=== PATIENT | female | born 1995 ===

== ENCOUNTER 2024-06-13 21:34 | Emergency (ER) | payer OTHER ==
--- OUTSIDE RECORDS SUMMARY | 2024-06-13 21:38 | XMS REPORT | Continuity of Care Document ---
Author Name Unknown Address [address] [facility] [address] [place] [address] [facility] thconnect Address [address] [facility] [address] [place] [address] Care Team Providers Care Satin Finisher Name Role Phone Susan Portillo MD Primary Care Physician [phone] Doctor Unassigned, [place] Attending Clinician U CLAYTON Beltran Attending Clinician Unavailable [email or web address]_Kasheilaa_S Attending Clinician Sourav Roman MD Attending Clinician [phone] RADIOLOGY Attending Clinician Unavailable Doctor Unassigned, [place] Attending Clinician U SOURAV Long Attending Clinician Unavailable BETO_GCBZW_Kasheilaa_S Admitting Clinician UnavailSOURAV Burkett Admitting Clinician Unavailable Payers Payer Name Policy Type Policy Number Effective Date Expirati on Date Source [facility] [id number] 2019 00:00:00 Problems Condition Name Condition Details Condition Category Status Onset Date Resolution Date Last Treatment Date Treating Clinician Comments Source PCOS (polycysti c ovarian syndrome) PCOS (polycysti c ovarian syndrome) Disease Active 06-16 00:00: 00 [facility] Family planning, IUD (intrauter ine device) check/rein sertion/re moval Family planning, IUD (intrauter ine device) check/rein sertion/re moval Disease Active 2018-05 00:00: 00 [facility] Presence of of 52 mg levonorges trel-relea sing intrauteri ne device (IUD) Presence of of 52 mg levonorges trel-relea sing intrauteri ne device (IUD) Disease Active 2018-05 00:00: 00 [facility] Hyperplasi a of endometriu m determined by biopsy Hyperplasi a of endometriu m determined by biopsy Disease Active 2018-05 00:00: 00 [facility] 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 Disease Active 11-22 00:00: 00 [facility] 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 [facility] Low back pain Low back pain Disease Active [facility] 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 [facility] Allergies, Adverse Reactions, Alerts Allergy Name Allergy Type Status Severity Reaction(s) Onset Date Inactive Date Treating Clinician Comments Source NO KNOWN ALLERGIE S Drug Class Active [facility] Social History Social Habit Start Date Stop Date Quantity Comments Source Sexual orientation U [facility] History of Social function 2019-12-31 00:00:00 2019-12-31 00:00:00 [facility] Alcoholic beverage intake 2019-06-16 00:00:00 2019-06-16 00:00:00 Current non-drinker of alcohol (finding) [facility] Alcohol intake 2019-06-16 00:00:00 2019-06-16 00:00:00 Current non-drinker of alcohol (finding) [facility] Tobacco use and exposure 2017-11-22 00:00:00 2017-11-22 00:00:00 Smokeless tobacco non-user [facility] Sex assigned at 1995 00:00:00 1995 00:00:00 [facility] Smoking Status Start Date Stop Date Source Never smoked tobacco [facility] Medications Ordered Medication Name Filled Medication Name Start Date Stop Date Current Medication? Ordering Clinician Indication Dosage Frequency Signature (SIG) Comments Components Source clotrimazol e 1 % vaginal cream - 00:00: 00 Yes 1% Issac Ortiz cefdinir 300 mg capsule 2023-05- 00:00: 00 Yes 1mg Issac Ortiz TAKE 1 TABLET DAILY DIRECTED. 7-10 00:00: 00 09-01 00:00 :00 No 500 Issac Ortiz TAKE 1 TABLET DAILY. 3-30 00:00: 00 09-01 00:00 :00 No 25 Issac Ortiz TAKE 1 TABLET DAILY. 2021-05 2-20 00:00: 00 09-01 00:00 :00 No 25 Issac Ortiz TAKE 1 TABLET BY MOUTH EVERY 12 HOURS 2021-05 1-25 00:00: 00 09-01 00:00 :00 No Issac Ortiz TAKE 1 TABLET DAILY. 9-21 00:00: 00 09-01 00:00 :00 No Issac Ortiz Dose Unknown 9-19 00:00: 00 09-01 00:00 :00 No Issac Ortiz Dose Unknown 2-10 00:00: 00 Yes Issac Ortiz DM/p-ephed/ acetaminoph /doxylam (NYQUIL D ORAL) 2018-05 19:38: 48 Yes Take by mouth daily. [facility] DM/p-ephed/ acetaminoph /doxylam (NYQUIL D ORAL) 2018-05 13:38: 48 Yes Take by mouth daily. [facility] Immunizations Ordered Immunization Name Filled Immunization Name Date Status Comments Source HPV, quadrivalent HPV, quadrivalent 2021-07-06 00:00:00 Completed Issac Ortiz Influenza Virus Vaccine Quad .5 mL IM 6+ MO 2019-04-15 00:00:00 Completed [facility] Influenza Virus Vaccine Quad .5 mL IM 6+ MO 2019-04-15 00:00:00 Completed [facility] Influenza Virus Vaccine Quad .5 mL IM 6+ MO 2019-04-15 00:00:00 Completed [facility] Influenza Virus Vaccine Quad .5 mL IM 6+ MO (FLUZONE/FLULAVAL/F LUARIX) 2019-04-15 00:00:00 Completed [facility] Influenza Virus Vaccine Quad .5 mL IM 6+ MO (FLUZONE/FLULAVAL/F LUARIX) Unknown Completed [facility] Vital Signs Vital Name Observation Time Observation Value Comments Alba cristobal Systolic blood pressure 2019-06-16 19:01:00 131 mm[Hg] [facility] Diastolic blood pressure 2019-06-16 19:01:00 85 mm[Hg] [facility] Heart rate 2019-06-16 19:01:00 95 /min [facility] Body temperature 2019-06-16 19:01:00 36.83 Katalina [facility] Respiratory rate 2019-06-16 19:01:00 18 /min [facility] Body height 2019-06-16 19:01:00 160 cm [facility] Body weight 2019-06-16 19:01:00 76.386 kg [facility] BMI 2019-06-16 19:01:00 29.83 kg/m2 [facility] BP Systolic 2024-05-28 11:08:00 117 mm[Hg] Step hen F Angel BP Diastolic 2024-05-28 11:08:00 64 mm[Hg] Magdiel phen F Angel Weight Measured 2024-05-28 11:08:00 138.00 pounds Issac F Angel Height Measured 2024-05-28 11:08:00 63.00 inches Issac F Angel Body Temperature 2024-05-28 11:08:00 98.00 degrees Issac F Angel Heart Rate 2024-05-28 11:08:00 62.00 /min [place] en F Angel Respiratory Rate 2024-05-28 11:08:00 Issac F Angel BP Systolic 2024-05-18 08:12:00 132 mm[Hg] Step hen F Angel BP Diastolic 2024-05-18 08:12:00 82 mm[Hg] Magdiel phen F Angel Weight Measured 2024-05-18 08:12:00 136.40 pounds Issac F Angel Height Measured 2024-05-18 08:12:00 63.00 inches Issac F Angel Body Temperature 2024-05-18 08:12:00 98.40 degrees Issac F Angel Heart Rate 2024-05-18 08:12:00 97.00 /min Katius[place] en F Angel Respiratory Rate 2024-05-18 08:12:00 Issac F Angel BP Systolic 2024-05-05 17:48:00 134 mm[Hg] Step hen F Angel BP Diastolic 2024-05-05 17:48:00 88 mm[Hg] Magdiel phen F Angel Weight Measured 2024-05-05 17:48:00 137.40 pounds Issac F Angel Height Measured 2024-05-05 17:48:00 63.00 inches Issac F Angel Body Temperature 2024-05-05 17:48:00 97.70 degrees Issac F Angel Heart Rate 2024-05-05 17:48:00 82.00 /min [place] en F Angel Respiratory Rate 2024-05-05 17:48:00 Issac F Angel BP Systolic 2024-04-20 16:45:00 124 mm[Hg] Step hen F Angel BP Diastolic 2024-04-20 16:45:00 79 mm[Hg] Magdiel phen F Angel Weight Measured 2024-04-20 16:45:00 134.00 pounds Issac F Angel Height Measured 2024-04-20 16:45:00 63.00 inches Issac F Angel Body Temperature 2024-04-20 16:45:00 97.80 degrees Issac F Angel Heart Rate 2024-04-20 16:45:00 66.00 /min [place] en F Angel Respiratory Rate 2024-04-20 16:45:00 18.00 /min Issac F Angel BP Systolic 2023-08-21 08:40:00 119 mm[Hg] Step hen F Angel BP Diastolic 2023-08-21 08:40:00 73 mm[Hg] Magdiel phen F Angel Weight Measured 2023-08-21 08:40:00 136.20 pounds Issac F Angel Height Measured 2023-08-21 08:40:00 63.00 inches Issac F Angel Body Temperature 2023-08-21 08:40:00 98.20 degrees Issac F Angel Heart Rate 2023-08-21 08:40:00 60.00 /min [place] en F Angel Respiratory Rate 2023-08-21 08:40:00 19.00 /min Issac F Angel BP Systolic 2022-12-03 09:02:00 128 mm[Hg] Step hen F Angel BP Diastolic 2022-12-03 09:02:00 86 mm[Hg] Magdiel phen F Angel Weight Measured 2022-12-03 09:02:00 147.80 pounds Issac F Angel Height Measured 2022-12-03 09:02:00 63.00 inches Issac F Angel Body Temperature 2022-12-03 09:02:00 98.20 degrees Issac F Angel Heart Rate 2022-12-03 09:02:00 61.00 /min [place] en F Angel Respiratory Rate 2022-12-03 09:02:00 19.00 /min Issac F Angel BP Systolic 2022-11-28 17:15:00 126 mm[Hg] Step hen F Angel BP Diastolic 2022-11-28 17:15:00 79 mm[Hg] Magdiel phen F Angel Weight Measured 2022-11-28 17:15:00 149.00 pounds Issac F Angel Height Measured 2022-11-28 17:15:00 63.00 inches Issac F Angel Body Temperature 2022-11-28 17:15:00 98.00 degrees Issac F Angel Heart Rate 2022-11-28 17:15:00 86.00 /min Katiuska en F Angel Respiratory Rate 2022-11-28 17:15:00 Issac F Angel BP Systolic 2022-11-12 09:32:00 120 mm[Hg] Step hen F Angel BP Diastolic 2022-11-12 09:32:00 76 mm[Hg] Magdiel phen F Angel Weight Measured 2022-11-12 09:32:00 147.20 pounds Issac F Angel Height Measured 2022-11-12 09:32:00 63.00 inches Issac F Angel Body Temperature 2022-11-12 09:32:00 98.30 degrees Issac F Angel Heart Rate 2022-11-12 09:32:00 83.00 /min Katiuska en F Angel Respiratory Rate 2022-11-12 09:32:00 19.00 /min Issac F Angel BP Systolic 2022-11-05 10:02:00 124 mm[Hg] Step hen F Angel BP Diastolic 2022-11-05 10:02:00 74 mm[Hg] Magdiel phen F Angel Weight Measured 2022-11-05 10:02:00 148.00 pounds Issac F Angel Height Measured 2022-11-05 10:02:00 63.00 inches Issac F Angel Body Temperature 2022-11-05 10:02:00 98.30 degrees Issac F Angel Heart Rate 2022-11-05 10:02:00 85.00 /min [place] en F Angel Respiratory Rate 2022-11-05 10:02:00 19.00 /min Issac F Angel BP Systolic 2022-08-23 07:59:00 128 mm[Hg] Step hen F Angel BP Diastolic 2022-08-23 07:59:00 83 mm[Hg] Magdiel phen F Angel Weight Measured 2022-08-23 07:59:00 151.60 pounds Issac F Angel Height Measured 2022-08-23 07:59:00 63.00 inches Issac F Angel Body Temperature 2022-08-23 07:59:00 98.90 degrees Issac F Angel Heart Rate 2022-08-23 07:59:00 84.00 /min [place] en F Angel Respiratory Rate 2022-08-23 07:59:00 Issac F Angel BP Systolic 2022-04-17 09:05:00 116 mm[Hg] Step hen F Angel BP Diastolic 2022-04-17 09:05:00 72 mm[Hg] Magdiel phen F Angel Weight Measured 2022-04-17 09:05:00 152.20 pounds Issac F Angel Height Measured 2022-04-17 09:05:00 63.00 inches Issac F Angel Body Temperature 2022-04-17 09:05:00 98.50 degrees Issac F Angel Heart Rate 2022-04-17 09:05:00 66.00 /min [place] en F Angel Respiratory Rate 2022-04-17 09:05:00 17.00 /min Issac F Angel BP Systolic 2022-02-13 09:50:00 129 mm[Hg] Step hen F Angel BP Diastolic 2022-02-13 09:50:00 85 mm[Hg] Magdiel phen F Angel Weight Measured 2022-02-13 09:50:00 12.60 pounds Issac F Angel Height Measured 2022-02-13 09:50:00 63.00 inches Issac F Angel Body Temperature 2022-02-13 09:50:00 98.30 degrees Issac F Angel Heart Rate 2022-02-13 09:50:00 76.00 /min Katiuska Ortiz Respiratory Rate 2022-02-13 09:50:00 17.00 /min Issac Ortiz BP Systolic 2021-07-06 09:01:00 116 mm[Hg] Kenneth Ortiz BP Diastolic 2021-07-06 09:01:00 74 mm[Hg] Magdiel Ortiz Weight Measured 2021-07-06 09:01:00 164.60 pounds Issac Ortiz Height Measured 2021-07-06 09:01:00 63.00 inches Issac Ortiz Body Temperature 2021-07-06 09:01:00 99.00 degrees Issac Ortiz Heart Rate 2021-07-06 09:01:00 85.00 /min Katiuska Ortiz Respiratory Rate 2021-07-06 09:01:00 17.00 /min Issac Ortiz Encounters Start Date/Time End Date/Time Encounter Type Admission Type Attending [facility] Care Department Encounter ID Source 2024-05-28 11:05:49 2024-05-28 11:05:49 Outpatient SFA SFA [id number] Issac Ortiz 2024-05-28 00:00:00 2024-05-28 00:00:00 Outpatient Visit SFA [id number] Issac Ortiz 2024-05-25 09:52:16 2024-05-25 09:52:16 Outpatient SFA SFA [id number] Issac Ortiz 2024-05-18 08:05:32 2024-05-18 08:05:32 Outpatient SFA SFA [id number] Issac Ortiz 2024-05-18 00:00:00 2024-05-18 00:00:00 Outpatient Visit SFA [id number] Issac Ortiz 2024-05-14 11:28:59 2024-05-14 11:28:59 Outpatient SFA SFA [id number] Issac Ortiz 2024-05-06 09:54:52 2024-05-06 09:54:52 Outpatient SFA SFA [id number] Issac Ortiz 2024-05-05 17:38:53 2024-05-05 17:38:53 Outpatient SFA SFA [id number] Issac Ortiz 2024-05-05 00:00:00 2024-05-05 00:00:00 Outpatient Visit SFA [id number] Issac Ortiz 2024-04-30 10:32:28 2024-04-30 10:32:28 Outpatient SFA [facility] [id number] Issac Ortiz 2024-03-25 00:00:00 2024-04-25 18:19:51 Patient Secure Msg Doctor Unassigned, [place] Doctor Unassigned, [place] [facility] [id number] [facility] 2024-04-20 16:33:50 2024-04-20 16:33:50 Outpatient SFA [facility] [id number] Issac Ortiz 2024-04-20 00:00:00 2024-04-20 00:00:00 Outpatient Visit SFA [id number] Issac Ortiz 2024-04-15 08:05:33 2024-04-15 08:05:33 Outpatient SFA [facility] [id number] Issac Ortiz 2024-04-06 14:00:00 2024-04-06 14:00:00 Outpatient CLAYTON WASHINGTON [facility] [id number] [facility] 2023-08-21 08:32:22 2023-08-21 08:32:22 Outpatient SFA [facility] [id number] Issac Ortiz 2023-03-25 00:00:00 2023-03-25 00:00:00 Outpatient GC_GCBZW_Ka diyala_S [facility] [id number] [facility] 2023-03-24 00:00:00 2023-03-24 00:00:00 Outpatient GC_GCBZW_Ka diyala_S [facility] [id number] [facility] 2022-12-03 08:58:08 2022-12-03 08:58:08 Outpatient [facility] [id number] Issac Ortiz 2022-11-28 16:58:17 2022-11-28 16:58:17 Outpatient [facility] [id number] Issac Ortiz 2022-11-12 09:21:41 2022-11-12 09:21:41 Outpatient [facility] [id number] Issac Ortiz 2022-11-05 09:56:07 2022-11-05 09:56:07 Outpatient [facility] [id number] Issac Ortiz 2022-04-17 00:00:00 2022-04-17 00:00:00 Patient Secure Msg Sourav Vega [facility] [id number] [id number] [facility] 2020-09-29 00:00:00 2020-09-29 00:00:00 Outpatient R RADIOLOGY [facility] [id number] [facility] 2019-06-16 12:53:54 2019-06-16 13:23:54 Office Visit Sourav Vega [facility] [id number] [facility] 2019-06-05 00:00:00 2019-06-05 00:00:00 Patient Secure Msg Doctor Unassigned, [place] [facility] [id number] [facility] 2019-05-25 00:00:00 2019-05-25 00:00:00 Patient Secure Msg Doctor Unassigned, [place] [facility] [id number] [facility] 2019-04-28 08:59:55 2019-04-28 23:59:00 Outpatient SOURAV KINNEY [facility] [id number] [facility] Results Test Description Test Time Test Comments Results Result Co mments Source MICROSCOPIC URINALYSIS, REFLEX [id number] 00:00:00* Test Item Value Reference Range Interpretation Comme nts WHITE BLOOD CELLS (test code = 1513) 0-5 /HPF RED BLOOD CELLS (test code = 1514) 0-2 /HPF EPITHELIAL CELLS (test code = 14042) 11-15 /HPF BACTERIA (test code = 1515) 1+ CASTS, HYALINE (test code = 1517) TRACE Issac OrtizHCG, [id number] 06:52:31* Test Item Value Reference Range Interpretation Comme nts HCG, QUANTITATIVE (test code = 2506) 22127 MIU/ML SEE BELOW EXPEC GARETH VALUES FOR HCG GST.AGE UNITS RANGE GST. AGE UNITS RANGE3 WEEKS MIU/ML 6-71 10 WEEKS MIU/ML 46,509-186,9774 WEEKS MIU/ML 10-750 12 WEEKS MIU/ML 27,832-210,6125 WEEKS MIU/ML 217-7,138 14 WEEKS MIU/ML 13,950-62,5306 WEEKS MIU/ML 158-31,795 15 WEEKS MIU/ML 12,039-70,9717 WEEKS MIU/ML 3,697-163,563 16 WEEKS MIU/ML 9,040-56,4518 WEEKS MIU/ML 32,065-149,571 17 WEEKS MIU/ML 8,175-55,8689 WEEKS MIU/ML 63,803-151,410 18 WEEKS MIU/ML 8,099-58,176MALES and NON- FEMALES . . . . . . . . MIU/ML 5-7IXGE-TFRDBXRAYE FEMALES . . . . . . . . . . . . MIU/ML <=7 UNLESS OTHERWISE INDICATED, ALL TESTING PERFORMED AT [facility] [employer] [address] [place] [address] MANAGER SOCIAL MEDIA: ARNULFO SHEFFIELD M.D. CLIA NUMBER [id number] [place]. [id number] HCG, [id number] 00:00:00* Test Item Value Reference Range Interpretation Comme nts HCG, QUANTITATIVE (test code = 2506) 50985 MIU/ML Issac OrtizHCG, [id number] 00:00:00* Test Item Value Reference Range Interpretation Comme nts HCG, QUANTITATIVE (test code = 2506) 42956 MIU/ML Issac OrtizHCG, [id number] 08:51:44* Test Item Value Reference Range Interpretation Comme nts HCG, QUANTITATIVE (test code = 2506) 93500 MIU/ML SEE BELOW EXPEC GARETH VALUES FOR HCG GST.AGE UNITS RANGE GST. AGE UNITS RANGE3 WEEKS MIU/ML 6-71 10 WEEKS MIU/ML 46,509-186,9774 WEEKS MIU/ML 10-750 12 WEEKS MIU/ML 27,832-210,6125 WEEKS MIU/ML 217-7,138 14 WEEKS MIU/ML 13,950-62,5306 WEEKS MIU/ML 158-31,795 15 WEEKS MIU/ML 12,039-70,9717 WEEKS MIU/ML 3,697-163,563 16 WEEKS MIU/ML 9,040-56,4518 WEEKS MIU/ML 32,065-149,571 17 WEEKS MIU/ML 8,175-55,8689 WEEKS MIU/ML 63,803-151,410 18 WEEKS MIU/ML 8,099-58,176MALES and NON- FEMALES . . . . . . . . MIU/ML 7-0KWQL-PTWLOMDXOC FEMALES . . . . . . . . . . . . MIU/ML <=7 UNLESS OTHERWISE INDICATED, ALL TESTING PERFORMED AT [facility] [employer] [address] [place] [address] MANAGER SOCIAL MEDIA: ARNULFO SHEFFIELD M.D. CLIA NUMBER [id number] [place]. [id number] HCG, [id number] 00:00:00* Test Item Value Reference Range Interpretation Comme nts HCG, QUANTITATIVE (test code = 2506) 88563 MIU/ML Issac OrtizHCG, [id number] 00:00:00* Test Item Value Reference Range Interpretation Comme nts HCG, QUANTITATIVE (test code = 2506) 98980 MIU/ML Issac OrtizHCG, [id number] 00:00:00* Test Item Value Reference Range Interpretation Comme nts HCG, QUANTITATIVE (test code = 2506) 72864 MIU/ML Issac OrtizVARICELLA ZOSTER [id number] 00:00:00* Test Item Value Reference Range Interpretation Comme nts VARICELLA ZOSTER IgG (test c ode = 38242) 3.81 S/CO Issac OrtizVARICELLA ZOSTER [id number] 00:00:00* Test Item Value Reference Range Interpretation Comme nts VARICELLA ZOSTER IgG (test c ode = 49314) 3.81 S/CO Issac OrtizVARICELLA ZOSTER [id number] 00:00:00* Test Item Value Reference Range Interpretation Comme nts VARICELLA ZOSTER IgG (test c ode = 49186) 3.81 S/CO Issac OrtizCULTURE, [id number] 00:00:00* Test Item Value Reference Range Interpretation Comme nts CULTURE, URINE (test code = 19674) SPECIMEN NUMBER: [id number] Issac OrtizCULTURE, [id number] 00:00:00* Test Item Value Reference Range Interpretation Comme nts CULTURE, URINE (test code = 87296) SPECIMEN NUMBER: [id number] Issac OrtizCULTURE, [id number] 00:00:00* Test Item Value Reference Range Interpretation Comme nts CULTURE, URINE (test code = 58268) SPECIMEN NUMBER: [id number] Issac OrtizOBSTETRIC PANEL + [id number] 00:00:00* Test Item Value Reference Range Interpretation Comme nts WBC (test code = 1001) 8.3 K/UL RBC (test code = 1002) 4.69 M/UL HEMOGLOBIN (test code = 1003) 13.8 G/DL HEMATOCRIT (test code = 1004) 43.1 % MCV (test code = 1005) 91.9 fL MCH (test code = 1006) 29.4 PG MCHC (test code = 1007) 32.0 G/DL RDW (test code = 1038) 11.9 % NEUTROPHILS (test code = 1008) 71.4 % LYMPHOCYTES (test code = 1010) 22.4 % MONOCYTES (test code = 1011) 4.4 % EOSINOPHILS (test code = 1012) 0.8 % BASOPHILS (test code = 1013) 0.2 % IMMATURE GRANULOCYTES (test code = 1036) 0.8 % NUCLEATED RBCS (test code = 1065) 0.0 /100WBC'S PLATELET COUNT (test code = 1015) 301 K/UL ABSOLUTE NEUTROPHILS (test code = 1066) 5.88 K/UL ABSOLUTE LYMPHOCYTES (test code = 1067) 1.85 K/UL ABSOLUTE MONOCYTES (test code = 1068) 0.36 K/UL ABSOLUTE EOSINOPHILS (test code = 1040) 0.07 K/UL ABSOLUTE BASOPHILS (test code = 1069) 0.02 K/UL ABS IMMATURE GRANULOCYTES (test code = 1020) 0.07 K/UL ABS NUCLEATED RBCS (test code = 13646) 0.00 K/UL BLOOD TYPE AND RH (test code = 3901) O POSITIVE ANTIBODY SCREEN (test code = 3902) NEGATIVE RUBELLA ANTIBODY SCREEN (test code = 4600) 134 IU/ML RUBELLA IgG INTERP (test code = 54502) REACTIVE HEPATITIS B SURF AG (test code = 2739) NON-REACTIVE RPR (test code = 25586) NON-REACTIVE RPR TITER (test code = 3500) NOT INDIC. TITER HIV 1/2 4TH GEN, RFLX CONF (test code = 3514) NON-REACTIVE Issac OrtizHCG, [id number] 00:00:00* Test Item Value Reference Range Interpretation Comme nts HCG, QUANTITATIVE (test code = 2506) 4338 MIU/ML Issac OrtizHEPATITIS PROFILE (A,B,C)2024-04-25 00:00:00* Test Item Value Reference Range Interpretation Comme nts HEPATITIS A TOTAL AB (test c ode = 2725) NON-REACTIVE HEPATITIS B SURF AG (test co de = 2739) NON-REACTIVE HEP B CORE TOTAL AB (test co de = 2729) NON-REACTIVE HEPATITIS B SURFACE AB (test code = 2737) EQUIVOCAL HEPATITIS C ANTIBODY (test c ode = 4662) NON-REACTIVE INTERPRETATION HEPATITIS A: (test code = 2552) (NOTE) INTERPRETATION HEPATITIS B: (test code = 70050) (NOTE) INTERPRETATION HEPATITIS C: (test code = 82805) (NOTE) Issac OrtizDRUG ABUSE SCREEN 10 REFLEX [id number] 00:00:00* Test Item Value Reference Range Interpretation Comme nts AMPHETAMINES (test code = 3201) NEGATIVE BARBITURATES (test code = 3202) NEGATIVE BENZODIAZEPINES (test code = 3203) NEGATIVE CANNABINOIDS (THC) (test cod e = 3204) NEGATIVE COCAINE METABOLITES (test co de = 3205) NEGATIVE OPIATE METABOLITES (test cod e = 3209) NEGATIVE OXYCODONE (test code = 08948) NEGATIVE PHENCYCLIDINE (PCP) (test co de = 3210) NEGATIVE METHADONE (test code = 3207) NEGATIVE BUPRENORPHINE (test code = 37601) NEGATIVE SOURCE (test code = 725299) URINE Issac OrtizCT/NG, NAAT, [id number] 00:00:00* Test Item Value Reference Range Interpretation Comme nts CHLAMYDIA, NAAT, URINE (test code = 64696) NEGATIVE GONORRHEA, NAAT, URINE (test code = 10880) NEGATIVE Issac OrtizOBSTETRIC PANEL + [id number] 00:00:00* Test Item Value Reference Range Interpretation Comme nts WBC (test code = 1001) 8.3 K/UL RBC (test code = 1002) 4.69 M/UL HEMOGLOBIN (test code = 1003) 13.8 G/DL HEMATOCRIT (test code = 1004) 43.1 % MCV (test code = 1005) 91.9 fL MCH (test code = 1006) 29.4 PG MCHC (test code = 1007) 32.0 G/DL RDW (test code = 1038) 11.9 % NEUTROPHILS (test code = 1008) 71.4 % LYMPHOCYTES (test code = 1010) 22.4 % MONOCYTES (test code = 1011) 4.4 % EOSINOPHILS (test code = 1012) 0.8 % BASOPHILS (test code = 1013) 0.2 % IMMATURE GRANULOCYTES (test code = 1036) 0.8 % NUCLEATED RBCS (test code = 1065) 0.0 /100WBC'S PLATELET COUNT (test code = 1015) 301 K/UL ABSOLUTE NEUTROPHILS (test code = 1066) 5.88 K/UL ABSOLUTE LYMPHOCYTES (test code = 1067) 1.85 K/UL ABSOLUTE MONOCYTES (test code = 1068) 0.36 K/UL ABSOLUTE EOSINOPHILS (test code = 1040) 0.07 K/UL ABSOLUTE BASOPHILS (test code = 1069) 0.02 K/UL ABS IMMATURE GRANULOCYTES (test code = 1020) 0.07 K/UL ABS NUCLEATED RBCS (test code = 18500) 0.00 K/UL BLOOD TYPE AND RH (test code = 3901) O POSITIVE ANTIBODY SCREEN (test code = 3902) NEGATIVE RUBELLA ANTIBODY SCREEN (test code = 4600) 134 IU/ML RUBELLA IgG INTERP (test code = 39018) REACTIVE HEPATITIS B SURF AG (test code = 2739) NON-REACTIVE RPR (test code = 38178) NON-REACTIVE RPR TITER (test code = 3500) NOT INDIC. TITER HIV 1/2 4TH GEN, RFLX CONF (test code = 3514) NON-REACTIVE Issac OrtizHCG, [id number] 00:00:00* Test Item Value Reference Range Interpretation Comme nts HCG, QUANTITATIVE (test code = 2506) 4338 MIU/ML Issac OrtizHEPATITIS PROFILE (A,B,C)2024-04-25 00:00:00* Test Item Value Reference Range Interpretation Comme nts HEPATITIS A TOTAL AB (test c ode = 2725) NON-REACTIVE HEPATITIS B SURF AG (test co de = 2739) NON-REACTIVE HEP B CORE TOTAL AB (test co de = 2729) NON-REACTIVE HEPATITIS B SURFACE AB (test code = 2737) EQUIVOCAL HEPATITIS C ANTIBODY (test c ode = 4675) NON-REACTIVE INTERPRETATION HEPATITIS A: (test code = 2552) (NOTE) INTERPRETATION HEPATITIS B: (test code = 71040) (NOTE) INTERPRETATION HEPATITIS C: (test code = 27585) (NOTE) Issac OrtizDRUG ABUSE SCREEN 10 REFLEX [id number] 00:00:00* Test Item Value Reference Range Interpretation Comme nts AMPHETAMINES (test code = 3201) NEGATIVE BARBITURATES (test code = 3202) NEGATIVE BENZODIAZEPINES (test code = 3203) NEGATIVE CANNABINOIDS (THC) (test cod e = 3204) NEGATIVE COCAINE METABOLITES (test co de = 3205) NEGATIVE OPIATE METABOLITES (test cod e = 3209) NEGATIVE OXYCODONE (test code = 81877) NEGATIVE PHENCYCLIDINE (PCP) (test co de = 3210) NEGATIVE METHADONE (test code = 3207) NEGATIVE BUPRENORPHINE (test code = 02379) NEGATIVE SOURCE (test code = 722764) URINE Issac Montelongo AustinCT/NG, NAAT, [id number] 00:00:00* Test Item Value Reference Range Interpretation Comme nts CHLAMYDIA, NAAT, URINE (test code = 84106) NEGATIVE GONORRHEA, NAAT, URINE (test code = 13927) NEGATIVE Issac Montelongo AustinOBSTETRIC PANEL + [id number] 00:00:00* Test Item Value Reference Range Interpretation Comme nts WBC (test code = 1001) 8.3 K/UL RBC (test code = 1002) 4.69 M/UL HEMOGLOBIN (test code = 1003) 13.8 G/DL HEMATOCRIT (test code = 1004) 43.1 % MCV (test code = 1005) 91.9 fL MCH (test code = 1006) 29.4 PG MCHC (test code = 1007) 32.0 G/DL RDW (test code = 1038) 11.9 % NEUTROPHILS (test code = 1008) 71.4 % LYMPHOCYTES (test code = 1010) 22.4 % MONOCYTES (test code = 1011) 4.4 % EOSINOPHILS (test code = 1012) 0.8 % BASOPHILS (test code = 1013) 0.2 % IMMATURE GRANULOCYTES (test code = 1036) 0.8 % NUCLEATED RBCS (test code = 1065) 0.0 /100WBC'S PLATELET COUNT (test code = 1015) 301 K/UL ABSOLUTE NEUTROPHILS (test code = 1066) 5.88 K/UL ABSOLUTE LYMPHOCYTES (test code = 1067) 1.85 K/UL ABSOLUTE MONOCYTES (test code = 1068) 0.36 K/UL ABSOLUTE EOSINOPHILS (test code = 1040) 0.07 K/UL ABSOLUTE BASOPHILS (test code = 1069) 0.02 K/UL ABS IMMATURE GRANULOCYTES (test code = 1020) 0.07 K/UL ABS NUCLEATED RBCS (test code = 81656) 0.00 K/UL BLOOD TYPE AND RH (test code = 3901) O POSITIVE ANTIBODY SCREEN (test code = 3902) NEGATIVE RUBELLA ANTIBODY SCREEN (test code = 4600) 134 IU/ML RUBELLA IgG INTERP (test code = 11294) REACTIVE HEPATITIS B SURF AG (test code = 2739) NON-REACTIVE RPR (test code = 08282) NON-REACTIVE RPR TITER (test code = 3500) NOT INDIC. TITER HIV 1/2 4TH GEN, RFLX CONF (test code = 3514) NON-REACTIVE Issac OrtizHCG, [id number] 00:00:00* Test Item Value Reference Range Interpretation Comme nts HCG, QUANTITATIVE (test code = 2506) 4338 MIU/ML Issac OrtizHEPATITIS PROFILE (A,B,C)[id number] 00:00:00* Test Item Value Reference Range Interpretation Comme nts HEPATITIS A TOTAL AB (test c ode = 2725) NON-REACTIVE HEPATITIS B SURF AG (test co de = 2739) NON-REACTIVE HEP B CORE TOTAL AB (test co de = 2729) NON-REACTIVE HEPATITIS B SURFACE AB (test code = 2737) EQUIVOCAL HEPATITIS C ANTIBODY (test c ode = 4675) NON-REACTIVE INTERPRETATION HEPATITIS A: (test code = 2552) (NOTE) INTERPRETATION HEPATITIS B: (test code = 97317) (NOTE) INTERPRETATION HEPATITIS C: (test code = 56205) (NOTE) Issac OrtizDRUG ABUSE SCREEN 10 REFLEX [id number] 00:00:00* Test Item Value Reference Range Interpretation Comme nts AMPHETAMINES (test code = 3201) NEGATIVE BARBITURATES (test code = 3202) NEGATIVE BENZODIAZEPINES (test code = 3203) NEGATIVE CANNABINOIDS (THC) (test cod e = 3204) NEGATIVE COCAINE METABOLITES (test co de = 3205) NEGATIVE OPIATE METABOLITES (test cod e = 3209) NEGATIVE OXYCODONE (test code = 32479) NEGATIVE PHENCYCLIDINE (PCP) (test co de = 3210) NEGATIVE METHADONE (test code = 3207) NEGATIVE BUPRENORPHINE (test code = 17769) NEGATIVE SOURCE (test code = 608043) URINE Issac OrtizCT/NG, NAAT, [id number] 00:00:00* Test Item Value Reference Range Interpretation Comme nts CHLAMYDIA, NAAT, URINE (test code = 49612) NEGATIVE GONORRHEA, NAAT, URINE (test code = 02072) NEGATIVE Issac [id number] 06:33:58* Test Item Value Reference Range Interpretation Comme [facility] ESTRADIOL (test code = 2505) 73.7 PG/ML SEE BELOW EXPECTED VALUES FOR ESTRADIOL FOR FEMALES >=18 YEARS FOLLICULAR . . . . . . . . . . . . . PG/ML 12.4-233.0 OVULATION. . . . . . . . . . . . . . PG/ML 41.0-398.0 LUTEAL PHASE . . . . . . . . . . . . PG/ML 22.3-341.0 POSTMENOPAUSAL SUPPLEMENTED/NON-SUPP . PG/ML <138.0/<20.0 NOTE: TO DETERMINE NORMAL VS. SUBNORMAL ESTRADIOL IN POSTMENOPAUSAL FEMALES, CONSIDER ULTRASENSITIVE ESTRADIOL ([facility] ORDER CODE 5678). METHODOLOGY IS ASHU JIMBO ELECTROCHEMILUMINESCENT IMMUNOASSAY WITH A LIMIT OF DETECTION OF 17 PG/ML. TSH, THIRD [id number] 06:33:58* Test Item Value Reference Range Interpretation Comme [facility] TSH, THIRD GENERATION (test code = 2821) 1.430 UIU/ML 0.400-4.100 [id number] 06:33:58* Test Item Value Reference Range Interpretation [facility] PRO[facility] (test code = 2790) 0.24 NG/ML SEE BELOW EXPECTED VALUES FOR PROGESTERONE MALE . . . . . . . . . . . . . . . . NG/ML <0.20 FEMALE FOLLICULAR PHASE . . . . . . . . . NG/ML <0.90 OVULATION . . . . . . . . . . . . NG/ML <12.00 LUTEAL PHASE . . . . . . . . . . . NG/ML 1.83-23.90 POSTMENOPAUSAL . . . . . . . . . . NG/ML <0.20 1ST TRIMESTER. . . . . . . . . . . NG/ML 11.00-44.30 2ND TRIMESTER. . . . . . . . . . . NG/ML 25.40-83.30 3RD TRIMESTER. . . . . . . . . . . NG/ML 58.70-214.00 UNLESS OTHERWISE INDICATED, ALL TESTING PERFORMED AT [facility] [address] [place] [id number] MANAGER SOCIAL MEDIA: ARNULFO SHEFFIELD M.D. [place] NUMBER [id number] [facility] [place]. [id number] FSH + LH [id number] 06:33:58* Test Item Value Reference Range Interpretation Comme nts FOLLICLE STIM HORMONE (test code = 2700) 6.8 IU/L SEE BELOW EXPEC GARETH VALUES FOR FSH FOR FEMALES >17 YEARS FOLLICULAR 3.5-12.5 IU/L MID-CYCLE PEAK 4.7-21.5 IU/L LUTEAL PHASE 1.7-7.7 IU/L POSTMENOPAUSAL 25.8-134.8 IU/L LUTEINIZING HORMONE (test code = 2776) 24.7 IU/L SEE BELOW EXPEC GARETH VALUES FOR LH FOR FEMALES >17 YEARS MALES FEMALES >=18 YEARS 1.8-8.6 IU/L FOLLICULAR 2.4-12.6 IU/L MID-CYCLE PEAK 14.0-95.6 IU/L LUTEAL PHASE 1.0-11.4 IU/L POSTMENOPAUSAL 7.7-58.5 IU/L [id number] 06:33:58* Test Item Value Reference Range Interpretation Comme nts PROLACTIN (test code = 2800) 9.3 NG/ML 5.0-37.0 NOTE: Methodolog y is Ashu Jimbo Electrochemiluminescence Immunoassay (ECLIA). Values obtained with different assays/manufacturers cannot be used interchangeably. Results should not be used as sole basis to establish the presence or absence of malignancy. [id number] 06:33:27* Test Item Value Reference Range Interpretation Comme nts TESTOSTERONE (test code = 2830) 68 NG/DL <=55 H NOTE: TOTAL TESTOSTERONE ASSAY SENSITIVITY IS 12 NG/DL. TO DETERMINE NORMAL VS. SUBNORMAL TESTOSTERONE IN CHILDREN AND WOMEN, CONSIDER TESTING WITH ULTRASENSITIVE TESTOSTERONE. TSH, THIRD [id number] 00:00:00* Test Item Value Reference Range Interpretation Comme nts TSH, THIRD GENERATION (test code = 2821) 1.430 UIU/ML Issac Montelongo [id number] 00:00:00* Test Item Value Reference Range Interpretation Comme nts PROGESTERONE (test code = 2790) 0.24 NG/ML Issac Montelongo [id number] 00:00:00* Test Item Value Reference Range Interpretation Comme nts TESTOSTERONE (test code = 2830) 68 NG/DL Issac OrtizFSH + LH [id number] 00:00:00* Test Item Value Reference Range Interpretation Comme nts FOLLICLE STIM HORMONE (test code = 2700) 6.8 IU/L LUTEINIZING HORMONE (test co de = 2776) 24.7 IU/L Issac Montelongo [id number] 00:00:00* Test Item Value Reference Range Interpretation Comme nts PROLACTIN (test code = 2800) 9.3 NG/ML Issac Montelongo [id number] 00:00:00* Test Item Value Reference Range Interpretation Comme nts ESTRADIOL (test code = 2505) 73.7 PG/ML Issac OrtizTSH, THIRD [id number] 00:00:00* Test Item Value Reference Range Interpretation Comme nts TSH, THIRD GENERATION (test code = 2821) 1.430 UIU/ML Issac OrtizAhyhwqTCWOTNHZVQQD0754-59-31 00:00:00* Test Item Value Reference Range Interpretation Comme nts PROGESTERONE (test code = 2790) 0.24 NG/ML Issac Montelongo [id number] 00:00:00* Test Item Value Reference Range Interpretation Comme nts TESTOSTERONE (test code = 2830) 68 NG/DL Issac OrtizFSH + LH [id number] 00:00:00* Test Item Value Reference Range Interpretation Comme nts FOLLICLE STIM HORMONE (test code = 2700) 6.8 IU/L LUTEINIZING HORMONE (test co de = 2776) 24.7 IU/L Issac Montelongo [id number] 00:00:00* Test Item Value Reference Range Interpretation Comme nts PROLACTIN (test code = 2800) 9.3 NG/ML Issac Montelongo [id number] 00:00:00* Test Item Value Reference Range Interpretation Comme nts ESTRADIOL (test code = 2505) 73.7 PG/ML Issac OrtizTSH, THIRD [id number] 00:00:00* Test Item Value Reference Range Interpretation Comme nts TSH, THIRD GENERATION (test code = 2821) 1.430 UIU/ML Issac Montelongo [id number] 00:00:00* Test Item Value Reference Range Interpretation Comme nts PROGESTERONE (test code = 2790) 0.24 NG/ML Issac Montelongo [id number] 00:00:00* Test Item Value Reference Range Interpretation Comme nts TESTOSTERONE (test code = 2830) 68 NG/DL Issac OrtizFSH + LH [id number] 00:00:00* Test Item Value Reference Range Interpretation Comme nts FOLLICLE STIM HORMONE (test code = 2700) 6.8 IU/L LUTEINIZING HORMONE (test co de = 2776) 24.7 IU/L Issac Montelongo EpkfgsLQSLXCWYV9957-03-71 00:00:00* Test Item Value Reference Range Interpretation Comme nts PROLACTIN (test code = 2800) 9.3 NG/ML Issac Montelongo [id number] 00:00:00* Test Item Value Reference Range Interpretation Comme nts ESTRADIOL (test code = 2505) 73.7 PG/ML Issac OrtizTSH, THIRD [id number] 00:00:00* Test Item Value Reference Range Interpretation Comme nts TSH, THIRD GENERATION (test code = 2821) 1.430 UIU/ML Issac OrtizIhnurxBVRVAIQCDVKW6300-93-40 00:00:00* Test Item Value Reference Range Interpretation Comme nts PROGESTERONE (test code = 2790) 0.24 NG/ML Issac Montelongo [id number] 00:00:00* Test Item Value Reference Range Interpretation Comme nts TESTOSTERONE (test code = 2830) 68 NG/DL Issac OrtizFSH + LH [id number] 00:00:00* Test Item Value Reference Range Interpretation Comme nts FOLLICLE STIM HORMONE (test code = 2700) 6.8 IU/L LUTEINIZING HORMONE (test co de = 2776) 24.7 IU/L Issac Montelongo [id number] 00:00:00* Test Item Value Reference Range Interpretation Comme nts PROLACTIN (test code = 2800) 9.3 NG/ML Issac OrtizYlurgeFNJJTIVMR2601-08-67 00:00:00* Test Item Value Reference Range Interpretation Comme [facility] ESTRADIOL (test code = 2505) 73.7 PG/ML Issac OrtizOmvfrqOYMWHDFVWUGV6009-68-69 06:52:57* Test Item Value Reference Range Interpretation Comme [facility] TESTOSTERONE (test code = 2830) 80 NG/DL See_Comment H NOTE: TOTAL TESTOSTERONE ASSAY SENSITIVITY IS 12 NG/DL. TO DETERMINE NORMAL VS. SUBNORMAL TESTOSTERONE IN CHILDREN AND WOMEN, CONSIDER TESTING WITH ULTRASENSITIVE TESTOSTERONE. [facility] has important pathology staff changes effective 07/25/2022. New pathology staff will provide uninterrupted, excellent patient care and clinical consultation. See URL: [email or web address]. UNLESS OTHERWISE INDICATED, ALL TESTING PERFORMED AT [facility] [address] [place] [address] MANAGER SOCIAL MEDIA: ARNULFO SHEFFIELD M.D. CLIA NUMBER [id number] [facility] [place]. [id number] [Automated message] The system which generated this result transmitted reference range: <=55. The reference range was not used to interpret this result as normal/abnormal. VITAMIN D, 25 [id number] 05:54:54* Test Item Value Reference Range Interpretation Comme [facility] VITAMIN D, 25 OH (test code = 4958) 27 NG/ML SEE BELOW L EFFECTIVE 01/2023, PLEASE NOTE NEW METHODOLOGY IS ELECTROCHEMILUMINESCENCE BINDING ASSAY. NOTE: 25-HYDROXYVITAMIN D ASSAY INCLUDES 25-HYDROXYVITAMIN D2 AND D3. INTERPRETIVE RANGES PEDIATRIC (<17 YEARS) . . . . . . . . . . . NG/ML 20-100ADULT: INSUFFICIENT . . . . . . . . . . . . . . NG/ML <20 SUBOPTIMAL . . . . . . . . . . . . . . . NG/ML 20-29 OPTIMAL . . . . . . . . . . . . . . . . . NG/ML 30-100 VITAMIN [id number] 05:19:59* Test Item Value Reference Range Interpretation Comme [facility] VITAMIN B-12 (test code = 2840) 356 PG/ML 200-950 VITAMIN D, 25 [id number] 00:00:00* Test Item Value Reference Range Interpretation Comme nts VITAMIN D, 25 OH (test code = 4958) 27 NG/ML Issac Montelongo AustinVITAMIN [id number] 00:00:00* Test Item Value Reference Range Interpretation Comme nts VITAMIN B-12 (test code = 2840) 356 PG/ML Issac Montelongo [id number] 00:00:00* Test Item Value Reference Range Interpretation Comme nts TESTOSTERONE (test code = 2830) 80 NG/DL Issac Montelongo AustinVITAMIN D, 25 [id number] 00:00:00* Test Item Value Reference Range Interpretation Comme nts VITAMIN D, 25 OH (test code = 4958) 27 NG/ML Issac Montelongo AustinVITAMIN [id number] 00:00:00* Test Item Value Reference Range Interpretation Comme nts VITAMIN B-12 (test code = 2840) 356 PG/ML Issac Montelongo [id number] 00:00:00* Test Item Value Reference Range Interpretation Comme nts TESTOSTERONE (test code = 2830) 80 NG/DL Issac OrtizVITAMIN D, 25 [id number] 00:00:00* Test Item Value Reference Range Interpretation Comme nts VITAMIN D, 25 OH (test code = 4958) 27 NG/ML Issac Montelongo AustinVITAMIN [id number] 00:00:00* Test Item Value Reference Range Interpretation Comme nts VITAMIN B-12 (test code = 2840) 356 PG/ML Issac Montelongo VehigmFXSYXHQKRRVH8726-21-19 00:00:00* Test Item Value Reference Range Interpretation Comme nts TESTOSTERONE (test code = 2830) 80 NG/DL Issac Montelongo AustinVITAMIN D, 25 [id number] 00:00:00* Test Item Value Reference Range Interpretation Comme nts VITAMIN D, 25 OH (test code = 4958) 27 NG/ML Issac Montelongo AustinVITAMIN [id number] 00:00:00* Test Item Value Reference Range Interpretation Comme nts VITAMIN B-12 (test code = 2840) 356 PG/ML Issac Montelongo [id number] 00:00:00* Test Item Value Reference Range Interpretation Comme nts TESTOSTERONE (test code = 2830) 80 NG/DL Issac OrtizPAP TEST, THINPREP, [id number] 00:00:00* Test Item Value Reference Range Interpretation Comme nts SOURCE: (test code = 8001) Cervical SLIDES: (test code = 8011) 1 LMP: (test code = 8021) NOT GIVEN SPECIMEN ADEQUACY: (test code = 43290) (NOTE) INTERPRETATION: (test code = 84021) NILM/NO EPITH. ABNORMALITY;SEE BELOW CONCILIATOR: (test code = 8101) Lavern Hernandez QC TECHNOLOGIST: (test code = 8111) Arleen Fitzgerald SCT(ASCP) CMI[facility] LOCATION: (test code = 12927) (NOTE) CPT: (test code = 8140) (NOTE) Issac OrtizPAP TEST, THINPREP, [id number] 00:00:00* Test Item Value Reference Range Interpretation Comme nts SOURCE: (test code = 8001) Cervical SLIDES: (test code = 8011) 1 LMP: (test code = 8021) NOT GIVEN SPECIMEN ADEQUACY: (test code = 16808) (NOTE) INTERPRETATION: (test code = 82590) NILM/NO EPITH. ABNORMALITY;SEE BELOW CONCILIATOR: (test code = 8101) Lavern Hernandez QC TECHNOLOGIST: (test code = 8111) Arleen Fitzgerald SCT(ASCP) [facility] LOCATION: (test code = 13124) (NOTE) CPT: (test code = 8140) (NOTE) Issac OrtizPAP TEST, THINPREP, [id number] 00:00:00* Test Item Value Reference Range Interpretation Comme nts SOURCE: (test code = 8001) Cervical SLIDES: (test code = 8011) 1 LMP: (test code = 8021) NOT GIVEN SPECIMEN ADEQUACY: (test code = 48735) (NOTE) INTERPRETATION: (test code = 19692) NILM/NO EPITH. ABNORMALITY;SEE BELOW CONCILIATOR: (test code = 8101) Lavern Hernandez QC TECHNOLOGIST: (test code = 8111) Arleen Fitzgerald SCT(ASCP) [facility] LOCATION: (test code = 93936) (NOTE) CPT: (test code = 8140) (NOTE) Issac OrtizPAP TEST, THINPREP, [id number] 00:00:00* Test Item Value Reference Range Interpretation Comme nts SOURCE: (test code = 8001) Cervical SLIDES: (test code = 8011) 1 LMP: (test code = 8021) NOT GIVEN SPECIMEN ADEQUACY: (test code = 98108) (NOTE) INTERPRETATION: (test code = 45791) NILM/NO EPITH. ABNORMALITY;SEE BELOW CONCILIATOR: (test code = 8101) Lavern Hernandez TECHNOLOGIST: (test code = 8111) Arleen Fitzgerald [facility](ASCP) [facility] LOCATION: (test code = 97443) (NOTE) CPT: (test code = 8140) (NOTE) Issac OrtizACUTE HEPATITIS [id number] 00:00:00* Test Item Value Reference Range Interpretation Comme nts HEPATITIS A IgM (test code = 35647) NON-REACTIVE HEPATITIS B CORE IgM (test c ode = 4644) NON-REACTIVE HEPATITIS B SURF AG (test co de = 2739) NON-REACTIVE HEPATITIS C ANTIBODY (test c ode = 4675) NON-REACTIVE INTERPRETATION HEPATITIS A: (test code = 2552) (NOTE) INTERPRETATION HEPATITIS B: (test code = 18615) (NOTE) INTERPRETATION HEPATITIS C: (test code = 86801) (NOTE) Issac OrtizGC AND CHLAMYDIA AMPLIFIED, [id number] 00:00:00* Test Item Value Reference Range Interpretation Comme nts CHLAMYDIA, NAAT, THINPREP (t est code = 74924) NEGATIVE GONORRHEA, NAAT, THINPREP (t est code = 67120) NEGATIVE Issac OrtizHIV 1/2 4TH GEN, RFLX [id number] 00:00:00* Test Item Value Reference Range Interpretation Comme nts HIV 1/2 4TH GEN, RFLX CONF ( test code = 3514) NON-REACTIVE Issac [id number] 00:00:00* Test Item Value Reference Range Interpretation Comme nts RPR RESULT (test code = 3501) NON-REACTIVE RPR TITER (test code = 3500) NOT INDIC. TITER Issac OrtizVAGINAL PATHOGENS DNA [id number] 00:00:00* Test Item Value Reference Range Interpretation Comme nts MARTIN SPECIES (test code = ) NEGATIVE G. VAGINALIS (test code = ) POSITIVE T. VAGINALIS (test code = ) NEGATIVE Issac OrtizHPV HIGH RISK WITH GENOTYPE, [id number] 00:00:00* Test Item Value Reference Range Interpretation Comme nts HPV HIGH RISK INTERP (test c ode = 34815) NEGATIVE HPV 16 (test code = 16392) NEGATIVE HPV 18 (test code = 23065) NEGATIVE HPV, HR, OTHER GENOTYPES (te st code = 81779) NEGATIVE Issac OrtizACUTE HEPATITIS [id number] 00:00:00* Test Item Value Reference Range Interpretation Comme nts HEPATITIS A IgM (test code = 47367) NON-REACTIVE HEPATITIS B CORE IgM (test c ode = 4644) NON-REACTIVE HEPATITIS B SURF AG (test co de = 2739) NON-REACTIVE HEPATITIS C ANTIBODY (test c ode = 4675) NON-REACTIVE INTERPRETATION HEPATITIS A: (test code = 2552) (NOTE) INTERPRETATION HEPATITIS B: (test code = 05554) (NOTE) INTERPRETATION HEPATITIS C: (test code = 76080) (NOTE) Issac OrtizGC AND CHLAMYDIA AMPLIFIED, [id number] 00:00:00* Test Item Value Reference Range Interpretation Comme nts CHLAMYDIA, NAAT, THINPREP (t est code = 00640) NEGATIVE GONORRHEA, NAAT, THINPREP (t est code = 68034) NEGATIVE Issac OrtizHIV 1/2 4TH GEN, RFLX [id number] 00:00:00* Test Item Value Reference Range Interpretation Comme nts HIV 1/2 4TH GEN, RFLX CONF ( test code = 3514) NON-REACTIVE Issac [id number] 00:00:00* Test Item Value Reference Range Interpretation Comme nts RPR RESULT (test code = 3501) NON-REACTIVE RPR TITER (test code = 3500) NOT INDIC. TITER Issac OrtizVAGINAL PATHOGENS DNA [id number] 00:00:00* Test Item Value Reference Range Interpretation Comme nts MARTIN SPECIES (test code = ) NEGATIVE G. VAGINALIS (test code = 38759) POSITIVE T. VAGINALIS (test code = 36910) NEGATIVE Issac F AustinHPV HIGH RISK WITH GENOTYPE, [id number] 00:00:00* Test Item Value Reference Range Interpretation Comme nts HPV HIGH RISK INTERP (test c ode = 02510) NEGATIVE HPV 16 (test code = 08448) NEGATIVE HPV 18 (test code = 55457) NEGATIVE HPV, HR, OTHER GENOTYPES (te st code = 77244) NEGATIVE Issac OrtizACUTE HEPATITIS [id number] 00:00:00* Test Item Value Reference Range Interpretation Comme nts HEPATITIS A IgM (test code = 16252) NON-REACTIVE HEPATITIS B CORE IgM (test c ode = 4644) NON-REACTIVE HEPATITIS B SURF AG (test co de = 2739) NON-REACTIVE HEPATITIS C ANTIBODY (test c ode = 4682) NON-REACTIVE INTERPRETATION HEPATITIS A: (test code = 2552) (NOTE) INTERPRETATION HEPATITIS B: (test code = 72005) (NOTE) INTERPRETATION HEPATITIS C: (test code = 97268) (NOTE) Issac OrtizGC AND CHLAMYDIA AMPLIFIED, [id number] 00:00:00* Test Item Value Reference Range Interpretation Comme nts CHLAMYDIA, NAAT, THINPREP (t est code = 34684) NEGATIVE GONORRHEA, NAAT, THINPREP (t est code = 24022) NEGATIVE Issac OrtizHIV 1/2 4TH GEN, RFLX [id number] 00:00:00* Test Item Value Reference Range Interpretation Comme nts HIV 1/2 4TH GEN, RFLX CONF ( test code = 3514) NON-REACTIVE Issac [id number] 00:00:00* Test Item Value Reference Range Interpretation Comme nts RPR RESULT (test code = 3501) NON-REACTIVE RPR TITER (test code = 3500) NOT INDIC. TITER Issac OrtizVAGINAL PATHOGENS DNA [id number] 00:00:00* Test Item Value Reference Range Interpretation Comme nts MARTIN SPECIES (test code = 61735) NEGATIVE G. VAGINALIS (test code = 11308) POSITIVE T. VAGINALIS (test code = 79076) NEGATIVE Issac OrtizHPV HIGH RISK WITH GENOTYPE, [id number] 00:00:00* Test Item Value Reference Range Interpretation Comme nts HPV HIGH RISK INTERP (test c ode = 86424) NEGATIVE HPV 16 (test code = 28461) NEGATIVE HPV 18 (test code = 65340) NEGATIVE HPV, HR, OTHER GENOTYPES (te st code = 01333) NEGATIVE Issac OrtizACUTE HEPATITIS [id number] 00:00:00* Test Item Value Reference Range Interpretation Comme nts HEPATITIS A IgM (test code = 22224) NON-REACTIVE HEPATITIS B CORE IgM (test c ode = 4644) NON-REACTIVE HEPATITIS B SURF AG (test co de = 3029) NON-REACTIVE HEPATITIS C ANTIBODY (test c ode = 4675) NON-REACTIVE INTERPRETATION HEPATITIS A: (test code = 2552) (NOTE) INTERPRETATION HEPATITIS B: (test code = 84001) (NOTE) INTERPRETATION HEPATITIS C: (test code = 65169) (NOTE) Issac OrtizHIV 1/2 4TH GEN, RFLX [id number] 00:00:00* Test Item Value Reference Range Interpretation Comme nts HIV 1/2 4TH GEN, RFLX CONF ( test code = 3514) NON-REACTIVE Issac OrtizGC AND CHLAMYDIA AMPLIFIED, [id number] 00:00:00* Test Item Value Reference Range Interpretation Comme nts CHLAMYDIA, NAAT, THINPREP (t est code = 58031) NEGATIVE GONORRHEA, NAAT, THINPREP (t est code = 86927) NEGATIVE Issac [id number] 00:00:00* Test Item Value Reference Range Interpretation Comme nts RPR RESULT (test code = 3501) NON-REACTIVE RPR TITER (test code = 3500) NOT INDIC. TITER Issac OrtizVAGINAL PATHOGENS DNA [id number] 00:00:00* Test Item Value Reference Range Interpretation Comme nts MARTIN SPECIES (test code = 25479) NEGATIVE G. VAGINALIS (test code = 41094) POSITIVE T. VAGINALIS (test code = 73891) NEGATIVE Issac OrtizHPV HIGH RISK WITH GENOTYPE, [id number] 00:00:00* Test Item Value Reference Range Interpretation Comme nts HPV HIGH RISK INTERP (test c ode = 20580) NEGATIVE HPV 16 (test code = 29711) NEGATIVE HPV 18 (test code = 34831) NEGATIVE HPV, HR, OTHER GENOTYPES (te st code = 62737) NEGATIVE Issac OrtizHEMOGLOBIN [id number] 07:18:12* Test Item Value Reference Range Interpretation Comme [facility] HEMOGLOBIN A1c (test code = 80240) 5.1 % 4.2-5.6 [id number] 05:39:02* Test Item Value Reference Range Interpretation Comme [facility] TESTOSTERONE (test code = 2830) 73 NG/DL See_Comment H NOTE: TOTAL TESTOSTERONE ASSAY SENSITIVITY IS 12 NG/DL. TO DETERMINE NORMAL VS. SUBNORMAL TESTOSTERONE IN CHILDREN AND WOMEN, CONSIDER TESTING WITH ULTRASENSITIVE TESTOSTERONE. UNLESS OTHERWISE INDICATED, ALL TESTING PERFORMED [facility] [employer] [address] [place] [address] MANAGER SOCIAL MEDIA: PHILL RUIZ M.D. CLIA NUMBER [id number] [place]. [id number] [Automated message] The system which generated this result transmitted reference range: <=55. The reference range was not used to interpret this result as normal/abnormal. VITAMIN [id number] 05:38:34* Test Item Value Reference Range Interpretation Comme [facility] VITAMIN B-12 (test code = 2840) 292 PG/ML 200-950 FSH + LH [id number] 05:38:34* Test Item Value Reference Range Interpretation Comme [facility] FOLLICLE STIM HORMONE (test code = 2700) 4.8 IU/L SEE BELOW EXPEC GARETH VALUES FOR FSH FOR FEMALES >17 YEARS MALES FEMALES >=18 YEARS 1.5-12.4 IU/L FOLLICULAR 3.5-12.5 IU/L MID-CYCLE PEAK 4.7-21.5 IU/L LUTEAL PHASE 1.7-7.7 IU/L POSTMENOPAUSAL 25.8-134.8 IU/L LUTEINIZING HORMONE (test code = 2776) 12.7 IU/L SEE BELOW EXPEC GARETH VALUES FOR LH FOR FEMALES >17 YEARS MALES FEMALES >=18 YEARS 1.8-8.6 IU/L FOLLICULAR 2.4-12.6 IU/L MID-CYCLE PEAK 14.0-95.6 IU/L LUTEAL PHASE 1.0-11.4 IU/L POSTMENOPAUSAL 7.7-58.5 IU/L VITAMIN D, 25 [id number] 04:14:26* Test Item Value Reference Range Interpretation Comme [facility] VITAMIN D, 25 OH (test code = 4958) 25 NG/ML SEE BELOW L NOTE: 25-HYDR OXYVITAMIN D ASSAY INCLUDES 25-HYDROXYVITAMIN D2 AND D3. METHODOLOGY IS CHEMILUMINESCENT IMMUNOASSAY. INTERPRETIVE RANGES PEDIATRIC (<17 YEARS) . . . . . . . . . . . NG/ML 20-100ADULT: INSUFFICIENT . . . . . . . . . . . . . . NG/ML <20 SUBOPTIMAL . . . . . . . . . . . . . . . NG/ML 20-29 OPTIMAL . . . . . . . . . . . . . . . . . NG/ML 30-100 IRON, [id number] 03:01:27* Test Item Value Reference Range Interpretation Comme [facility] IRON, SERUM (test code = 2222) 98 UG/DL 37-145 LIPID [id number] 03:01:27* Test Item Value Reference Range Interpretation Comme nts CHOLESTEROL (test code = 2210) 173 MG/DL <200 TRIGLYCERIDES (test code = 2232) 64 MG/DL <150 HDL CHOLESTEROL (test code = 2220) 53 MG/DL >39 CALC LDL CHOL (test code = 2237) 105 MG/DL <100 H NOTE: CALCULATED LDL IS BASED ON ALF-BECKFORD METHOD WHICHINCLUDES ADJUSTABLE TRIGLYCERIDE:VLDL CHOLESTEROL RATIO.THIS FACTOR VARIES BY MEASURED TRIGLYCERIDE AND NON-HDLCHOLESTEROL CONCENTRATIONS WITH INCREASED CALCULATED LDL SEENIN HIGHER TRIGLYCERIDE OR LOWER NON-HDL SPECIMENS. FOR MOREINFORMATION, SEE CLIENT ANNOUNCEMENT AT [email or web address] RISK RATIO LDL/HDL (test code = 2238) 1.98 RATIO <3.22 FSH + LH [id number] 00:00:00* Test Item Value Reference Range Interpretation Comme [facility] FOLLICLE STIM HORMONE (test code = 2700) 4.8 IU/L LUTEINIZING HORMONE (test co de = 2776) 12.7 IU/L Issac OrtizHEMOGLOBIN [id number] 00:00:00* Test Item Value Reference Range Interpretation Comme [facility] HEMOGLOBIN A1c (test code = 80336) 5.1 % Issac [id number] 00:00:00* Test Item Value Reference Range Interpretation Comme [facility] TESTOSTERONE (test code = 2830) 73 NG/DL Issac OrtizIRON, [id number] 00:00:00* Test Item Value Reference Range Interpretation Comme nts IRON, SERUM (test code = 2222) 98 UG/DL Issac OrtizLIPID [id number] 00:00:00* Test Item Value Reference Range Interpretation Comme nts CHOLESTEROL (test code = 2210) 173 MG/DL TRIGLYCERIDES (test code = 2232) 64 MG/DL HDL CHOLESTEROL (test code = 2220) 53 MG/DL CALC LDL CHOL (test code = 2237) 105 MG/DL RISK RATIO LDL/HDL (test cod e = 2238) 1.98 RATIO Issac OrtizVITAMIN D, 25 [id number] 00:00:00* Test Item Value Reference Range Interpretation Comme [place] VITAMIN D, 25 OH (test code = 4958) 25 NG/ML Issac OrtizVITAMIN [id number] 00:00:00* Test Item Value Reference Range Interpretation Comme [facility] VITAMIN B-12 (test code = 2840) 292 PG/ML Issac OrtizFSH + LH [id number] 00:00:00* Test Item Value Reference Range Interpretation Comme [facility] FOLLICLE STIM HORMONE (test code = 2700) 4.8 IU/L LUTEINIZING HORMONE (test co de = 2776) 12.7 IU/L Issac OrtizHEMOGLOBIN [id number] 00:00:00* Test Item Value Reference Range Interpretation Comme [facility] HEMOGLOBIN A1c (test code = 93801) 5.1 % Issac [id number] 00:00:00* Test Item Value Reference Range Interpretation Comme nts TESTOSTERONE (test code = 2830) 73 NG/DL Issac OrtizIRON, [id number] 00:00:00* Test Item Value Reference Range Interpretation Comme nts IRON, SERUM (test code = 2222) 98 UG/DL Issac OrtizLIPID [id number] 00:00:00* Test Item Value Reference Range Interpretation Comme nts CHOLESTEROL (test code = 2210) 173 MG/DL TRIGLYCERIDES (test code = 2232) 64 MG/DL HDL CHOLESTEROL (test code = 2220) 53 MG/DL CALC LDL CHOL (test code = 2237) 105 MG/DL RISK RATIO LDL/HDL (test cod e = 2238) 1.98 RATIO Issac OrtizVITAMIN D, 25 [id number] 00:00:00* Test Item Value Reference Range Interpretation Comme nts VITAMIN D, 25 OH (test code = 4958) 25 NG/ML Issac OrtizVITAMIN [id number] 00:00:00* Test Item Value Reference Range Interpretation Comme nts VITAMIN B-12 (test code = 2840) 292 PG/ML Issac OrtizFSH + LH [id number] 00:00:00* Test Item Value Reference Range Interpretation Comme [place] FOLLICLE STIM HORMONE (test code = 2700) 4.8 IU/L LUTEINIZING HORMONE (test co de = 2776) 12.7 IU/L Issac OrtizHEMOGLOBIN [id number] 00:00:00* Test Item Value Reference Range Interpretation Comme [place] HEMOGLOBIN A1c (test code = 00159) 5.1 % Issac [id number] 00:00:00* Test Item Value Reference Range Interpretation Comme [place] TESTOSTERONE (test code = 2830) 73 NG/DL Issac OrtizIRON, [id number] 00:00:00* Test Item Value Reference Range Interpretation Comme [place] IRON, SERUM (test code = 2222) 98 UG/DL Issac OrtizLIPID [id number] 00:00:00* Test Item Value Reference Range Interpretation Comme nts CHOLESTEROL (test code = 2210) 173 MG/DL TRIGLYCERIDES (test code = 2232) 64 MG/DL HDL CHOLESTEROL (test code = 2220) 53 MG/DL CALC LDL CHOL (test code = 2237) 105 MG/DL RISK RATIO LDL/HDL (test cod e = 2238) 1.98 RATIO Issac OrtizVITAMIN D, 25 [id number] 00:00:00* Test Item Value Reference Range Interpretation Comme [place] VITAMIN D, 25 OH (test code = 4958) 25 NG/ML Issac OrtizVITAMIN [id number] 00:00:00* Test Item Value Reference Range Interpretation Comme nts VITAMIN B-12 (test code = 2840) 292 PG/ML Issac OrtizFSH + LH [id number] 00:00:00* Test Item Value Reference Range Interpretation Comme [place] FOLLICLE STIM HORMONE (test code = 2700) 4.8 IU/L LUTEINIZING HORMONE (test co de = 2776) 12.7 IU/L Issac OrtizHEMOGLOBIN [id number] 00:00:00* Test Item Value Reference Range Interpretation Comme [place] HEMOGLOBIN A1c (test code = 05578) 5.1 % Issac [id number] 00:00:00* Test Item Value Reference Range Interpretation Comme [place] TESTOSTERONE (test code = 2830) 73 NG/DL Issac OritzIRON, [id number] 00:00:00* Test Item Value Reference Range Interpretation Comme [place] IRON, SERUM (test code = 2222) 98 UG/DL Issac OrtizLIPID [id number] 00:00:00* Test Item Value Reference Range Interpretation Comme nts CHOLESTEROL (test code = 2210) 173 MG/DL TRIGLYCERIDES (test code = 2232) 64 MG/DL HDL CHOLESTEROL (test code = 2220) 53 MG/DL CALC LDL CHOL (test code = 2237) 105 MG/DL RISK RATIO LDL/HDL (test cod e = 2238) 1.98 RATIO Issac OrtizVITAMIN D, 25 [id number] 00:00:00* Test Item Value Reference Range Interpretation Comme [place] VITAMIN D, 25 OH (test code = 4958) 25 NG/ML Issac OrtizVITAMIN [id number] 00:00:00* Test Item Value Reference Range Interpretation Comme [place] VITAMIN B-12 (test code = 2840) 292 PG/ML Issac OrtizTSH, THIRD [id number] 05:44:49* Test Item Value Reference Range Interpretation Comme [facility] TSH, THIRD GENERATION (test code = 2821) 1.090 UIU/ML 0.400-4.100 UNLESS OTHERWISE INDICATED, ALL TESTING PERFORMED [facility] [address] [place] [address] MANAGER SOCIAL MEDIA: PHILL RUIZ M.D. CLIA NUMBER [id number] [place]. [id number] COMPREHENSIVE METABOLIC [id number] 03:57:42* Test Item Value Reference Range Interpretation Comme nts GLUCOSE (test code = 2217) 82 MG/DL 70-99 BUN (test code = 2207) 14 MG/DL 6-20 CREATININE (test code = 2213) 0.80 MG/DL 0.60-1.30 eGFR (2020 CKD-EPI) (test code = ) 105 ML/MIN/1.73 >60 CALC BUN/CREAT (test code = 2234) 18 RATIO 6-28 SODIUM (test code = 2230) 141 MEQ/L 133-146 POTASSIUM (test code = 2227) 4.1 MEQ/L 3.5-5.4 CHLORIDE (test code = 2214) 103 MEQ/L 95-107 CARBON DIOXIDE (test code = 2205) 25 MEQ/L 19-31 CALCIUM (test code = 2208) 9.8 MG/DL 8.5-10.5 PROTEIN, TOTAL (test code = 2228) 7.7 G/DL 6.1-8.3 ALBUMIN (test code = 2200) 4.9 G/DL 3.5-5.2 CALC GLOBULIN (test code = 2239) 2.8 G/DL 1.9-3.7 CALC A/G RATIO (test code = 2233) 1.8 RATIO 1.0-2.6 BILIRUBIN, TOTAL (test code = 2206) 0.6 MG/DL See_Comment [Automated me ssage] The system which generated this result transmitted reference range: <=1.2. The reference range was not used to interpret this result as normal/abnormal. ALKALINE PHOSPHATASE (test code = 2203) 76 U/L 40-112 AST (test code = 2217) 23 U/L 9-40 ALT (test code = 2218) 20 U/L 5-40 CBC W/AUTO DIFF WITH [id number] 03:52:36* Test Item Value Reference Range Interpretation Comme nts WBC (test code = 1001) 5.7 K/UL 3.5-11.0 RBC (test code = 1002) 4.76 M/UL 3.80-5.40 HEMOGLOBIN (test code = 1003) 14.9 G/DL 11.5-15.5 HEMATOCRIT (test code = 1004) 42.3 % 34.0-45.0 MCV (test code = 1005) 88.9 fL 80.0-99.0 MCH (test code = 1006) 31.3 PG 25.0-33.0 MCHC (test code = 1007) 35.2 G/DL 31.0-36.0 RDW (test code = 1038) 12.5 % 11.5-15.0 NEUTROPHILS (test code = 1008) 64.4 % LYMPHOCYTES (test code = 1010) 24.3 % MONOCYTES (test code = 1011) 9.3 % EOSINOPHILS (test code = 1012) 1.1 % BASOPHILS (test code = 1013) 0.5 % IMMATURE GRANULOCYTES (test code = 1036) 0.4 % NUCLEATED RBCS (test code = 1065) 0.0 /100 WBC'S See_Comment [Automated messa ge] The system which generated this result transmitted reference range: 0.0. The reference range was not used to interpret this result as normal/abnormal. PLATELET COUNT (test code = 1015) 306 K/UL 130-400 ABSOLUTE NEUTROPHILS (test code = 1066) 3.67 K/UL 1.50-7.50 ABSOLUTE LYMPHOCYTES (test code = 1067) 1.38 K/UL 1.00-4.00 ABSOLUTE MONOCYTES (test code = 1068) 0.53 K/UL 0.20-1.00 ABSOLUTE EOSINOPHILS (test code = 1040) 0.06 K/UL 0.00-0.50 ABSOLUTE BASOPHILS (test code = 1069) 0.03 K/UL 0.00-0.20 ABS IMMATURE GRANULOCYTES (test code = 1020) 0.02 K/UL 0.00-0.10 ABS NUCLEATED RBCS (test code = 27379) 0.00 K/UL 0.00-0.11 COMPREHENSIVE METABOLIC [id number] 00:00:00* Test Item Value Reference Range Interpretation Comme nts GLUCOSE (test code = 2217) 82 MG/DL BUN (test code = 2208) 14 MG/DL CREATININE (test code = 2214) 0.80 MG/DL eGFR (2020 CKD-EPI) (test code = 30509) 105 ML/MIN/1.73 CALC BUN/CREAT (test code = 2235) 18 RATIO SODIUM (test code = 2231) 141 MEQ/L POTASSIUM (test code = 2228) 4.1 MEQ/L CHLORIDE (test code = 2215) 103 MEQ/L CARBON DIOXIDE (test code = 2206) 25 MEQ/L CALCIUM (test code = 2209) 9.8 MG/DL PROTEIN, TOTAL (test code = 2229) 7.7 G/DL ALBUMIN (test code = 2201) 4.9 G/DL CALC GLOBULIN (test code = 2240) 2.8 G/DL CALC A/G RATIO (test code = 2234) 1.8 RATIO BILIRUBIN, TOTAL (test code = 2207) 0.6 MG/DL ALKALINE PHOSPHATASE (test code = 2204) 76 U/L AST (test code = 2218) 23 U/L ALT (test code = 2219) 20 U/L [facility]/AUTO [id number] 00:00:00* Test Item Value Reference Range Interpretation Comme nts WBC (test code = 1001) 5.7 K/UL RBC (test code = 1002) 4.76 M/UL HEMOGLOBIN (test code = 1003) 14.9 G/DL HEMATOCRIT (test code = 1004) 42.3 % MCV (test code = 1005) 88.9 fL MCH (test code = 1006) 31.3 PG MCHC (test code = 1007) 35.2 G/DL RDW (test code = 1038) 12.5 % NEUTROPHILS (test code = 1008) 64.4 % LYMPHOCYTES (test code = 1010) 24.3 % MONOCYTES (test code = 1011) 9.3 % EOSINOPHILS (test code = 1012) 1.1 % BASOPHILS (test code = 1013) 0.5 % IMMATURE GRANULOCYTES (test code = 1036) 0.4 % NUCLEATED RBCS (test code = 1065) 0.0 /100WBC'S PLATELET COUNT (test code = 1015) 306 K/UL ABSOLUTE NEUTROPHILS (test c ode = 1066) 3.67 K/UL ABSOLUTE LYMPHOCYTES (test c ode = 1067) 1.38 K/UL ABSOLUTE MONOCYTES (test cod e = 1068) 0.53 K/UL ABSOLUTE EOSINOPHILS (test c ode = 1040) 0.06 K/UL ABSOLUTE BASOPHILS (test cod e = 1069) 0.03 K/UL ABS IMMATURE GRANULOCYTES (t est code = 1020) 0.02 K/UL ABS NUCLEATED RBCS (test cod e = 03037) 0.00 K/UL Issac [id number] 00:00:00* Test Item Value Reference Range Interpretation Comme nts TSH, THIRD GENERATION (test code = 2821) 1.090 UIU/ML Issac OrtizCOMPREHENSIVE METABOLIC [id number] 00:00:00* Test Item Value Reference Range Interpretation Comme nts GLUCOSE (test code = 2217) 82 MG/DL BUN (test code = 2208) 14 MG/DL CREATININE (test code = 2214) 0.80 MG/DL eGFR (2020 CKD-EPI) (test code = 72683) 105 ML/MIN/1.73 CALC BUN/CREAT (test code = 2235) 18 RATIO SODIUM (test code = 2231) 141 MEQ/L POTASSIUM (test code = 2228) 4.1 MEQ/L CHLORIDE (test code = 2215) 103 MEQ/L CARBON DIOXIDE (test code = 2206) 25 MEQ/L CALCIUM (test code = 2209) 9.8 MG/DL PROTEIN, TOTAL (test code = 2229) 7.7 G/DL ALBUMIN (test code = 2201) 4.9 G/DL CALC GLOBULIN (test code = 2240) 2.8 G/DL CALC A/G RATIO (test code = 2234) 1.8 RATIO BILIRUBIN, TOTAL (test code = 2207) 0.6 MG/DL ALKALINE PHOSPHATASE (test code = 2204) 76 U/L AST (test code = 2218) 23 U/L ALT (test code = 2219) 20 U/L Issac OrtizCBC W/AUTO [id number] 00:00:00* Test Item Value Reference Range Interpretation Comme nts WBC (test code = 1001) 5.7 K/UL RBC (test code = 1002) 4.76 M/UL HEMOGLOBIN (test code = 1003) 14.9 G/DL HEMATOCRIT (test code = 1004) 42.3 % MCV (test code = 1005) 88.9 fL MCH (test code = 1006) 31.3 PG MCHC (test code = 1007) 35.2 G/DL RDW (test code = 1038) 12.5 % NEUTROPHILS (test code = 1008) 64.4 % LYMPHOCYTES (test code = 1010) 24.3 % MONOCYTES (test code = 1011) 9.3 % EOSINOPHILS (test code = 1012) 1.1 % BASOPHILS (test code = 1013) 0.5 % IMMATURE GRANULOCYTES (test code = 1036) 0.4 % NUCLEATED RBCS (test code = 1065) 0.0 /100WBC'S PLATELET COUNT (test code = 1015) 306 K/UL ABSOLUTE NEUTROPHILS (test c ode = 1066) 3.67 K/UL ABSOLUTE LYMPHOCYTES (test c ode = 1067) 1.38 K/UL ABSOLUTE MONOCYTES (test cod e = 1068) 0.53 K/UL ABSOLUTE EOSINOPHILS (test c ode = 1040) 0.06 K/UL ABSOLUTE BASOPHILS (test cod e = 1069) 0.03 K/UL ABS IMMATURE GRANULOCYTES (t est code = 1020) 0.02 K/UL ABS NUCLEATED RBCS (test cod e = 50730) 0.00 K/UL Issac Montelongo [id number] 00:00:00* Test Item Value Reference Range Interpretation Comme nts TSH, THIRD GENERATION (test code = 2821) 1.090 UIU/ML Issac Montelongo AngelCOMPREHENSIVE METABOLIC [id number] 00:00:00* Test Item Value Reference Range Interpretation Comme nts GLUCOSE (test code = 2217) 82 MG/DL BUN (test code = 2208) 14 MG/DL CREATININE (test code = 2214) 0.80 MG/DL eGFR (2020 CKD-EPI) (test code = 79409) 105 ML/MIN/1.73 CALC BUN/CREAT (test code = 2235) 18 RATIO SODIUM (test code = 2231) 141 MEQ/L POTASSIUM (test code = 2228) 4.1 MEQ/L CHLORIDE (test code = 2215) 103 MEQ/L CARBON DIOXIDE (test code = 2206) 25 MEQ/L CALCIUM (test code = 2209) 9.8 MG/DL PROTEIN, TOTAL (test code = 2229) 7.7 G/DL ALBUMIN (test code = 2201) 4.9 G/DL CALC GLOBULIN (test code = 2240) 2.8 G/DL CALC A/G RATIO (test code = 2234) 1.8 RATIO BILIRUBIN, TOTAL (test code = 2207) 0.6 MG/DL ALKALINE PHOSPHATASE (test code = 2204) 76 U/L AST (test code = 2218) 23 U/L ALT (test code = 2219) 20 U/L Issac OrtizCBC W/AUTO [id number] 00:00:00* Test Item Value Reference Range Interpretation Comme nts WBC (test code = 1001) 5.7 K/UL RBC (test code = 1002) 4.76 M/UL HEMOGLOBIN (test code = 1003) 14.9 G/DL HEMATOCRIT (test code = 1004) 42.3 % MCV (test code = 1005) 88.9 fL MCH (test code = 1006) 31.3 PG MCHC (test code = 1007) 35.2 G/DL RDW (test code = 1038) 12.5 % NEUTROPHILS (test code = 1008) 64.4 % LYMPHOCYTES (test code = 1010) 24.3 % MONOCYTES (test code = 1011) 9.3 % EOSINOPHILS (test code = 1012) 1.1 % BASOPHILS (test code = 1013) 0.5 % IMMATURE GRANULOCYTES (test code = 1036) 0.4 % NUCLEATED RBCS (test code = 1065) 0.0 /100WBC'S PLATELET COUNT (test code = 1015) 306 K/UL ABSOLUTE NEUTROPHILS (test c ode = 1066) 3.67 K/UL ABSOLUTE LYMPHOCYTES (test c ode = 1067) 1.38 K/UL ABSOLUTE MONOCYTES (test cod e = 1068) 0.53 K/UL ABSOLUTE EOSINOPHILS (test c ode = 1040) 0.06 K/UL ABSOLUTE BASOPHILS (test cod e = 1069) 0.03 K/UL ABS IMMATURE GRANULOCYTES (t est code = 1020) 0.02 K/UL ABS NUCLEATED RBCS (test cod e = 50421) 0.00 K/UL Issac [id number] 00:00:00* Test Item Value Reference Range Interpretation Comme nts TSH, THIRD GENERATION (test code = 2821) 1.090 UIU/ML Issac OrtizCOMPREHENSIVE METABOLIC [id number] 00:00:00* Test Item Value Reference Range Interpretation Comme nts GLUCOSE (test code = 2217) 82 MG/DL BUN (test code = 2208) 14 MG/DL CREATININE (test code = 2214) 0.80 MG/DL eGFR (2020 CKD-EPI) (test code = 68419) 105 ML/MIN/1.73 CALC BUN/CREAT (test code = 2235) 18 RATIO SODIUM (test code = 2231) 141 MEQ/L POTASSIUM (test code = 2228) 4.1 MEQ/L CHLORIDE (test code = 2215) 103 MEQ/L CARBON DIOXIDE (test code = 2206) 25 MEQ/L CALCIUM (test code = 2209) 9.8 MG/DL PROTEIN, TOTAL (test code = 2229) 7.7 G/DL ALBUMIN (test code = 2201) 4.9 G/DL CALC GLOBULIN (test code = 2240) 2.8 G/DL CALC A/G RATIO (test code = 2234) 1.8 RATIO BILIRUBIN, TOTAL (test code = 2207) 0.6 MG/DL ALKALINE PHOSPHATASE (test code = 2204) 76 U/L AST (test code = 2218) 23 U/L ALT (test code = 2219) 20 U/L Issac Montelongo [facility] W/AUTO [id number] 00:00:00* Test Item Value Reference Range Interpretation Comme nts WBC (test code = 1001) 5.7 K/UL RBC (test code = 1002) 4.76 M/UL HEMOGLOBIN (test code = 1003) 14.9 G/DL HEMATOCRIT (test code = 1004) 42.3 % MCV (test code = 1005) 88.9 fL MCH (test code = 1006) 31.3 PG MCHC (test code = 1007) 35.2 G/DL RDW (test code = 1038) 12.5 % NEUTROPHILS (test code = 1008) 64.4 % LYMPHOCYTES (test code = 1010) 24.3 % MONOCYTES (test code = 1011) 9.3 % EOSINOPHILS (test code = 1012) 1.1 % BASOPHILS (test code = 1013) 0.5 % IMMATURE GRANULOCYTES (test code = 1036) 0.4 % NUCLEATED RBCS (test code = 1065) 0.0 /100WBC'S PLATELET COUNT (test code = 1015) 306 K/UL ABSOLUTE NEUTROPHILS (test c ode = 1066) 3.67 K/UL ABSOLUTE LYMPHOCYTES (test c ode = 1067) 1.38 K/UL ABSOLUTE MONOCYTES (test cod e = 1068) 0.53 K/UL ABSOLUTE EOSINOPHILS (test c ode = 1040) 0.06 K/UL ABSOLUTE BASOPHILS (test cod e = 1069) 0.03 K/UL ABS IMMATURE GRANULOCYTES (t est code = 1020) 0.02 K/UL ABS NUCLEATED RBCS (test cod e = 54786) 0.00 K/UL Issac [id number] 00:00:00* Test Item Value Reference Range Interpretation Comme nts TSH, THIRD GENERATION (test code = 2821) 1.090 UIU/ML Issac Ortiz
--- NOTE | 2024-06-13 22:43 | RAD REPORT ---
EXAM: 1St Trimest Single 1St Fetus HISTORY: VAGINAL BLEEDING COMPARISON: None TECHNIQUE: Multiple grayscale and color Doppler images were obtained in a transabdominal pelvic ultra sound. Spectral analysis of the Doppler waveforms of the ovaries were performed. FINDINGS: UTERUS: The fetus identified. [place]-rump length: 6.4 cm which estimates gestational age at 12 week 6 day. Femur length measures 0.9 cm which is consistent with 12 week 4 day. The ultrasound age is estimated at 12 week 5 day. A heart rate is detected at 160 bpm. No evidence of subchorionic hemorrhage. No free fluid is seen in the pelvis. RIGHT OVARY: Nonvisualized. LEFT OVARY: Nonvisualized IMPRESSION: Single live intrauterine with estimated age of 12 weeks 5 day.
[2024-06-13 23:05] LABS: Absolute Eosinophils 0.1 K/uL (0-0.5); Absolute Lymphocytes (CBC) 2.3 K/uL (0.7-4.9); Absolute Neutrophil 8.8 K/uL (1.8-8.0); Basophils % 0.3 % (0-1.3); Eosinophils % 0.4 % (0-4.4); Hemoglobin 13.2 g/dL (12.0-15.0); Lymphocytes % 19.1 % (15.3-44.8); MCHC 34.8 g/dL (32.0-36.0); MCV 89.2 fL (80-100); MPV 7.5 fL (7.6-11.3); Monocytes % 7.8 % (3.3-12.3); Neutrophils % 72.4 % (41.7-73.7); Nucleated Red Blood Cells % 0.1 % (0-0); Platelets 318 thou/uL (152-406); RBC Red Blood Cell Count 4.26 M/uL (3.86-4.86); Red Cell Distribution Width 13.2 % (12.1-15.2)
[2024-06-13 23:07] LABS: Specific Gravity 1.007 (1.005-1.030)
[2024-06-13 23:08] LABS: Specific Gravity 1.007 (1.005-1.030); Sqamous Epithelial None Seen /HPF (None Seen); Urine Bacteria <20 /HPF (<20); Urine Bilirubin NEGATIVE (Negative); Urine Blood 3+ (Negative); Urine Clarity Clear (Clear); Urine Color Colorless (Yellow); Urine Culture Reflex Order NOT NEEDED; Urine Glucose TRACE (Negative); Urine Ketones NEGATIVE (Negative); Urine Microscopic Reflex YN ORDER UMIC; Urine Mucus Slight /HPF (None Seen); Urine Nitrite NEGATIVE (Negative); Urine Protein NEGATIVE (Negative); Urine Urobilinogen Normal (Normal); Urine WBC <5 /HPF (<5); Urine pH 7.5 (5.0-7.0)
[2024-06-13 23:43] LABS: Anion Gap 9.3 mEq/L (5.0-15.0); Potassium 3.3 mEq/L (3.5-5.1)
--- NOTE | 2024-06-13 23:52 | EDPHYS ---
Physician Documentation [facility] Name: Manju Montaño Age: 29 yrs Sex: Female : 1995 Arrival Date: 06/13/2024 Time: 21:34 Bed 6 Private MD: ED Physician Spencer Segundo HPI: 06/13 21:51 This 29 yrs old Female presents to ER via Ambulatory with complaints of Abdominal sb4 Cramping, Vaginal Bleeding, + Preg <12wks. 21:51 The patient presents to the emergency department with abdominal pain, of the suprapubic sb4 area, vaginal bleeding, that is light. The estimated gestational age is 12 weeks. course: care: private OB physician, Leakage of Fluid: none appreciated, Ultrasound: the patient had an ultrasound, which was normal, Risk/complications: no obvious risks or complications are appreciated. Previous pregnancies: the patient has never been . The patient has not experienced similar symptoms in the past. vag bleeding and abd cramping after sexual intercourse this evening. symptoms have resolved. 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 - Infectious Disease History:: Denies. - Social history:: Smoking status: Patient denies any tobacco usage or history of. ROS: 21:52 Constitutional: Negative for fever, chills, and weight loss, sb4 21:52 Abdomen/GI: Positive for abdominal cramps, 21:52 : Positive for vaginal bleeding, 21:52 All other systems are negative, Exam: 21:52 Constitutional: This is a well developed, well nourished patient who is awake, alert, sb4 and in no acute distress. Head/Face: Normocephalic, atraumatic. Eyes: Extra-ocular motions intact. Periorbital areas with no swelling, redness, or edema. ENT: Mucous membranes moist. Cardiovascular: Regular rate and rhythm with a normal S1 and S2. Respiratory: No increased work of breathing, no retractions or nasal flaring. Abdomen/GI: Soft, non-tender, no distension. Skin: Warm, dry with normal turgor. Normal color with no rashes, no lesions, and no evidence of cellulitis. 23:52 : Pelvic Exam: External exam: is normal, Speculum exam: mild bleeding, no cervicitis, sb4 os that is closed, no tissue in cervix is seen, no tissue in vagina is seen, the nurse was present for the exam, Vital Signs: 21:46 BP 130 / 80; Pulse 86; Resp 16; Temp 98.1; Pulse Ox 100% ; Weight 62.14 kg; Height 5 cp4 ft. 3 in. ; Pain 0/10; 22:55 BP 135 / 72; Pulse 75; Resp 18 S; Pulse Ox 100% on R/A; ha1 23:50 BP 128 / 71; Pulse 74; Resp 16 S; Pulse Ox 100% on R/A; ha1 21:46 Body Mass Index 24.27 (62.14 kg, 160.02 cm) cp4 21:46 Pain Scale: Adult cp4 MDM: 21:44 Medical Screening Exam initiated sb4 23:53 Data reviewed: vital signs, nurses notes, lab test result(s), radiologic studies, and sb4 as a result, I will discharge patient. Counseling: I had a detailed discussion with the patient and/or guardian regarding the historical points, exam findings, and any diagnostic results supporting the discharge/admit diagnosis, lab results, radiology results, the need for outpatient follow up, an OB/Gyne specialist, to return to the emergency department if symptoms worsen or persist or if there are any questions or concerns that arise at home. 06/14 00:12 Differential diagnosis: threatened Ab, inevitable Ab, UTI, vaginal laceration. sb4 06/13 21:51 Order name: Abo/rh Typing; Complete Time: 23:43 sb4 06/13 21:51 Order name: Basic Metabolic Panel; Complete Time: 23:44 sb4 06/13 21:51 Order name: CBC with Diff; Complete Time: 23:16 sb4 06/13 21:51 Order name: Test, Urine; Complete Time: 23:08 sb4 06/13 21:51 Order name: Quantitative Hcg; Complete Time: 23:44 sb4 06/13 21:51 Order name: Urinalysis w/ reflexes; Complete Time: 23:09 sb4 06/13 22:36 Order name: 1St Trimest Single 1St Fetus; Complete Time: 22:44 EDMS 06/13 21:51 Order name: IV Saline Lock; Complete Time: 22:52 sb4 06/13 21:51 Order name: Labs collected and sent; Complete Time: 22:52 sb4 Administered Medications: No medications were administered Disposition: 00:44 Co-signature as Attending Physician, Spencer Segundo MD I reviewed the patient's care rt provided by the Advanced Practice Provider and agree with the diagnosis and treatment plan. Disposition Summary: 06/13/24 23:52 Discharge Ordered Notes: Location: Home sb4 Problem: new sb4 Symptoms: have improved sb4 Condition: Stable sb4 Diagnosis - Threatened sb4 Followup: sb4 - With: Private Physician - When: 2 - 3 days - Reason: Recheck today's complaints, Re-evaluation by your physician Discharge Instructions: - Discharge Summary Sheet sb4 - Threatened Miscarriage sb4 - Vaginal Bleeding During , Second Trimester sb4 Forms: - Patient Portal Instructions sb4 - Leadership Thank You Letter sb4 Signatures: Dispatcher [employer] EDAK Maryellen Montgomery, PAMc PAMc sb4 Spencer Segundo MD MD rt Lisa Marques 4 Corrections: (The following items were deleted from the chart) 06/13 22:36 21:52 Transvaginal Ob+US.RAD.BRZ ordered. [facility] EDAK 23:53 23:52 : Pelvic Exam: External exam: is normal, Speculum exam: mild bleeding, no sb4 cervicitis, os that is closed, no tissue in cervix is seen, no tissue in vagina is seen, sb4
--- NOTE | 2024-06-13 23:52 | ER ---
Nurse's Notes [facility] Name: Manju Montaño Age: 29 yrs Sex: Female : 1995 Arrival Date: 06/13/2024 Time: 21:34 Bed 6 Private MD: Diagnosis: Threatened Presentation: 06/13 21:46 Chief complaint: Patient states: vaginal bleeding that started today. States she is 12 cp4 weeks . 1st . Coronavirus screen: Client denies travel out of the [place] in the last 14 days. At this time, the client does not indicate any symptoms associated with coronavirus-19. Ebola Screen: Patient negative for fever greater than or equal to 101.5 degrees Fahrenheit, and additional compatible Ebola Virus Disease symptoms Patient denies exposure to infectious person. Patient denies travel to an Ebola-affected area in the 21 days before illness onset. No symptoms or risks identified at this time. Initial Sepsis Screen: Does the patient meet any 2 criteria? No. Patient's initial sepsis screen is negative. Does the patient have a suspected source of infection? No. Patient's initial sepsis screen is negative. Risk Assessment: Do you want to hurt yourself or someone else? Patient reports no desire to harm self or others. Onset of symptoms was June 13, 2024. 21:46 Method Of Arrival: Ambulatory cp4 21:46 Acuity: VIRGEN 3 cp4 Triage Assessment: 21:47 General: Appears in no apparent distress. comfortable, Behavior is calm, cooperative, cp4 appropriate for age. Pain: Denies pain. GI: No signs and/or symptoms were reported involving the gastrointestinal system. DIAGRAM CLERK: 21:47 Verified cp4 21:51 1, Full Term 0, Premature 0, 0, Living 0, Verified sb4 Historical: - Allergies: 21:47 No Known Allergies; cp4 - Immunization history:: Adult Immunizations up to date. - Infectious Disease History:: Denies. - Social history:: Smoking status: Patient denies any tobacco usage or history of. Screenin:[facility] ED Fall Risk Assessment (Adult) History of falling in the last 3 months, ha1 including since admission No falls in past 3 months (0 pts) Confusion or Disorientation No (0 pts) Intoxicated or Sedated No (0 pts) Impaired Gait No (0 pts) Mobility Assist Device Used No (0 pt) Altered Elimination No (0 pt) Score/Fall Risk Level 0 - 2 = Low Risk Oriented to surroundings, Maintained a safe environment, Educated pt \T\ family on fall prevention, incl call for assistance when getting out of bed, Hourly rounding (assess needs \T\ fall precautionary measures) done. Abuse screen: Denies threats or abuse. Denies injuries from another. Nutritional screening: No deficits noted. Tuberculosis screening: No symptoms or risk factors identified. Assessment: 22:40 General: Appears comfortable, Behavior is calm, cooperative. ha1 22:40 Pain: Complains of pain in pelvis Pain does not radiate. Pain currently is 2 out of 10 ha1 on a pain scale. Quality of pain is described as crampy. Neuro: Level of Consciousness is awake, alert, obeys commands, Oriented to person, place, time, situation. Cardiovascular: Patient's skin is warm and dry. Respiratory: Airway is patent Respiratory effort is even, unlabored, Respiratory pattern is regular, symmetrical. GI: Abdomen is round non-distended, Bowel sounds present X 4 quads. Abd is soft and non tender X 4 quads. : Urine is blood tinged, Reports vaginal bleeding that is light flow, since 3-4 hours ago. Derm: Skin is pink, warm \T\ dry. Musculoskeletal: Circulation, motion, and sensation intact. Range of motion: intact in all extremities. 23:50 Reassessment: Patient and/or family updated on plan of care and expected duration. Pain ha1 level reassessed. Patient is alert, oriented x 3, equal unlabored respirations, skin warm/dry/pink. Vital Signs: 21:46 BP 130 / 80; Pulse 86; Resp 16; Temp 98.1; Pulse Ox 100% ; Weight 62.14 kg; Height 5 cp4 ft. 3 in. ; Pain 0/10; 22:55 BP 135 / 72; Pulse 75; Resp 18 S; Pulse Ox 100% on R/A; ha1 23:50 BP 128 / 71; Pulse 74; Resp 16 S; Pulse Ox 100% on R/A; ha1 21:46 Body Mass Index 24.27 (62.14 kg, 160.02 cm) cp4 21:46 Pain Scale: Adult cp4 ED Course: 21:38 Patient arrived in ED. gm2 21:39 Maryellen Montgomery PA-C is PHCP. sb4 21:39 Spencer Segundo MD is Attending Physician. sb4 21:47 Triage completed. cp4 21:47 Arm band placed on right wrist. Patient placed in waiting room. cp4 22:27 Juani Hernadez RN is Primary Nurse. ha1 22:30 Patient has correct armband on for positive identification. Placed in gown. Bed in low ha1 position. Call light in reach. Side rails up X 1. Adult w/ patient. 22:36 1St Trimest Single 1St Fetus In Process Unspecified. EDMS 22:50 Inserted saline lock: 20 gauge in right antecubital area, using aseptic technique. ha1 Blood collected. Flushed with 10 mL NS. 22:52 Abo/rh Typing Sent. ha1 22:52 Basic Metabolic Panel Sent. ha1 22:52 CBC with Diff Sent. ha1 22:52 Test, Urine Sent. ha1 22:52 Quantitative Hcg Sent. ha1 22:52 Urinalysis w/ reflexes Sent. ha1 06/14 00:29 Provided Education on: following up with OB . ha1 00:31 No provider procedures requiring assistance completed. IV discontinued, intact, ha1 bleeding controlled, No redness/swelling at site. Pressure dressing applied. Administered Medications: No medications were administered Medication: 06/13 22:57 VIS not applicable for this client. ha1 Outcome: 23:52 Discharge ordered by . sb4 06/14 00:29 Condition: stable ha1 00:29 Discharged to home ambulatory, ha1 00:29 Discharge instructions given to patient, Instructed on discharge instructions, follow up and referral plans. Demonstrated understanding of instructions, follow-up care, 00:31 Patient left the ED. ha1 Signatures: Dispatcher [employer] EDFL Juani Hernadez, СВЕТЛАНА RN ha1 Maryellen Montgomery PA-C PA-C sb4 Lisa Marques cp4 Brenna Ramirez gm2
[2024-06-14 00:42] VITALS: TEMP 98.1; O2SAT 100
[2024-06-14 00:47] VITALS: BP 135/72
== END 2024-06-14 00:31 | disposition home or self-care (01) ==
LOC: ER 21:34
DX: O20.0 Threatened abortion (principal)
CPT/HCPCS: 36415; 76801; 80048; 81001; 81025; 84702; 85025; 86900; 86901; 99284